=== PATIENT | male | born 2000 | race American Indian/Alaskan Native ===

== ENCOUNTER 2022-02-03 20:50 | Emergency (ER) | payer SELFPAY ==
[2022-02-04 02:22] LABS: Mucus,Urine FEW /HPF
[2022-02-04 02:34] LABS: Bilirubin,Urine Negative (Negative); Blood,Urine Negative (Negative); Color,Urine Yellow (Yellow)
--- NOTE | 2022-02-04 03:11 | Emergency Department Report ---
ED Male HPI - General Chief complaint: Urogenital-Male Stated complaint: STD Source: patient Mode of arrival: Ambulatory Limitations: No Limitations - History of Present Illness Initial comments: Patient is a 21-year-old -Citizen Of [place] male with no past medical history presents to the ED for evaluation after he started experiencing urinary frequency and urgency. Patient states that he suspected he may have been infected by sexually-transmitted disease by his girlfriend who has since travel to [facility] 20 days ago. Patient denies dizziness, syncope, testicular pain, dys uria, penile discharge, fever, chills, abdominal pain, nausea and vomiting, low back pain, traumatic injury or hematuria. MD Complaint: other (Urinary frequency and urgency) -: Sudden, days(s) (2) Location: penis Radiation: none Severity: mild Severity scale (0 -10): 0 Quality: dull Improves with: none Worsens with: none denies other symptoms. denies: discharge, swelling, mass, rash, urinary retention, blood in urine, dysuria, fever, nausea/vomiting, incontinence, other - Related Data Sexually active: Yes Allergies Allergy/AdvReac Type Severity Reaction Status Date / Time No Known Allergies Allergy Unverified 02/03/22 23:31 ED Review of Systems ROS: Stated complaint: STD Other details as noted in HPI Constitutional: denies: chills, fever Eyes: denies: eye pain, eye discharge, vision change ENT: denies: ear pain, throat pain Respiratory: denies: cough, shortness of breath, wheezing Cardiovascular: denies: chest pain, palpitations Endocrine: no symptoms reported Gastrointestinal: denies: abdominal pain, nausea, vomiting, diarrhea Genitourinary: urgency, frequency. denies: dysuria Musculoskeletal: denies: back pain, joint swelling, arthralgia Skin: denies: rash, lesions Neurological: denies: headache, weakness, paresthesias Psychiatric: denies: anxiety, depression Hematological/Lymphatic: denies: easy bleeding, easy bruising ED Physical Exam - General Limitations: No Limitations General appearance: alert, in no apparent distress - Head Head exam: Present: atraumatic, normocephalic, normal inspection - Eye Eye exam: Present: normal appearance, PERRL, EOMI Pupils: Present: normal accommodation - ENT ENT exam: Present: normal exam, normal orophraynx, mucous membranes moist, TM's normal bilaterally, normal external ear exam - Neck Neck exam: Present: normal inspection, full ROM. Absent: tenderness - Respiratory Respiratory exam: Present: normal lung sounds bilaterally. Absent: respiratory distress, wheezes, rales, rhonchi, chest wall tenderness, accessory muscle use, decreased breath sounds, prolonged expiratory - Cardiovascular Cardiovascular Exam: Present: regular rate, normal rhythm, normal heart sounds. Absent: systolic murmur, diastolic murmur, rubs, gallop - GI/Abdominal GI/Abdominal exam: Present: soft, normal bowel sounds. Absent: tenderness, guarding, rebound, hyperactive bowel sounds, hypoactive bowel sounds, organomegaly, bruit - Extremities Exam Extremities exam: Present: normal inspection, full ROM, normal capillary refill - Back Exam Back exam: Present: normal inspection, full ROM. Absent: tenderness, CVA tenderness (R), CVA tenderness (L), muscle spasm, paraspinal tenderness, vertebral tenderness - Neurological Exam Neurological exam: Present: alert, oriented X3, CN II-XII intact, normal gait, reflexes normal - Psychiatric Psychiatric exam: Present: normal affect, normal mood - Skin Skin exam: Present: warm, dry, intact, normal color. Absent: rash ED Course Vital Signs 02/03/22 02/04/22 02/04/22 23:28 00:49 03:39 Temperature 98.3 F Pulse Rate 77 78 Respiratory 20 12 Rate Blood Pressure 134/79 126/72 [Right] O2 Sat by Pulse 100 98 100 Oximetry ED Medical Decision Making - Medical Decision Making This is a 21-year-old -Citizen Of [place] male with no past medical history presents to the ED for evaluation after he started experiencing urinary frequency and urgency. Patient states that he suspected he may have been infected by sexually-transmitted disease by his girlfriend who has since travel to [facility] 20 days ago. In the ED, patient is alert and oriented x3 and is not in any distress. Patient is hemodynamically stable. Urinalysis is unre markable. Patient was offered empirical treatment for suspected STD but declined given that his urinalysis was unremarkable. Patient was discharged home and advised to follow-up with his primary care physician as needed. - Differential Diagnosis STD; UTI; Gonorrrhea; chlamydia Critical care attestation.: If time is entered above; I have spent that time in minutes in the direct care of this critically ill patient, excluding procedure time. ED Disposition Clinical Impression: Urinary urgency, Concern about STD in male without diagnosis Disposition: 01 HOME / SELF CARE / HOMELESS Is pt being admited?: No Does the pt Need Aspirin: No Condition: Stable Instructions: Safe Sex Additional Instructions: Urinalysis is unremarkable and there is no sign of sexually transmitted disease. Therefore follow-up with your primary care physician as needed. Return to the ED immediately if symptoms get worse. Referrals: [facility] [Provider Group] - 3-5 Days Time of Disposition: 03:08 Print Language: GERMAN
[2022-02-04 03:40] VITALS: BP 126/72
== END 2022-02-04 03:40 | disposition home or self-care (01) ==
LOC: ED 20:50
DX: R39.15 Urgency of urination (principal); Z20.2 Contact with and (suspected) exposure to infections with a predominantly sexual mode of transmission
CPT/HCPCS: 81001; 99283